=== PATIENT | female | born 1990 | race Caucasian/White ===

== ENCOUNTER 2016-10-10 11:26 | Emergency (ER) | payer OTHER ==
--- NOTE | 2016-10-10 14:00 | ED ORDER SUMMARY ---
..... Patient: SORAYA MIDDLETON OrderSheet [facility] VisitID: [id number] [place] [address] 26y, F Registration Date/Time: 10/10/2016 ORDER SHEET Weight: 141.9 kg (measured) Allergies: No Known Drug Allergy GENERAL ORDERS: CBC w Diff Urgent (12:07 10/10/2016 HBivens A.R.N.P.) (Ack 12:09 TBergley) (12:16 EHassan R.N.) CMP Urgent (12:10/10/2016 HBivens A.R.N.P.) (Ack 12:09 TBergley) (12:16 EHassan R.N.) Serum Qualitative Urgent (12:10/10/2016 HBivens A.R.N.P.) (Ack 12:09 TBergley) (12:16 EHassan R.N.) Pelvic Exam Setup (12:07 10/10/2016 HBivens A.R.N.P.) (Ack 12:09 TBergley) (12:16 EHassan R.N.) US OB 1st Trimester w Transvag (6 wks) Urgent (12:44 10/10/2016 HBivens A.R.N.P.) (Ack 12:45 TBergley) (13:28 EHassan R.N.) Serum Quantitative Urgent (12:44 10/10/2016 HBivens A.R.N.P.) (Ack 12:45 TBergley) (13:28 EHassan R.N.) MEDICATION ORDERS: IV FLUIDS: ORDER SHEET NOTES: [Electronically signed by Clair Johnston R.N. (14:12 10/10/2016)] [Electronically signed by Rachele Mcnamara A.R.N.P. (14:21 10/10/2016)] [Electronically locked/signed by Clair Johnston R.N. (14:12 10/10/2016)]
--- NOTE | 2016-10-10 14:00 | ED NURSING NOTES ---
Clinical Report - Nurses [facility] [address] [place] [address] 10/10/2016 11:28 Patient: SORAYA MIDDLETON TRIAGE Triage time 1138 AM. Acuity: LEVEL 3. Chief Complaint: ABDOMINAL CRAMPS, SPOTTING and VAGINAL BLEEDING. Alert. No acute distress. SEPSIS SCREEN: Sepsis Screen. Negative (no infection suspected/documented). --11:45 Clair Johnston R.N. 11:36 10/10/16. BP: 133/79. HR: 106. RR: 14. O2 saturation: 96%. Temp: 98.5 F. Pain level now: 01/21. --11:45 Clair Johnston R.N. Weight: 141.9 kg measured. Height/Length: 69 inches Per Patient. BMI: 46.2. --11:37 Clair Johnston R.N. Medications Vitamins Oral. --11:44 Clair Johnston R.N. Medication/allergy information source: the patient. --11:45 Clair Johnston R.N. Allergies No Known Drug Allergy. --11:44 Clair Johnston R.N. History Arrived by private vehicle. Historian: patient. Accompanied by family. Primary physician ([facility] clinic). ( Pt states being 6 weeks and as of this morning started heavy bleeding with cramping, now light spotting still cramping. Pt states with her first had the same symptoms happened and needed a RH shot. Here for further evaluation). This started today. This is a new problem. No vomiting, fever or swelling. 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 PAST MEDICAL HX: Immunizations: up-to-date. 2. Para 1. Abortions 0. Sexual history - sexually active. She has had care in a clinic (Has an appoitment on ). SOCIAL HX: Light tobacco smoker (cigarette)- less than 1/2 a pack per day. No alcohol use or drug use. No infectious disease exposure. ABUSE ASSESSMENT: No report of abuse. SELF HARM ASSESSMENT: A self harm assessment was performed. The patient answered "no" to the question "Do you have thoughts of harming or killing yourself?" and "Have you recently had thoughts about harming or killing others?". FALL RISK ASSESSMENT: Fall risk assessment completed. No fall risk identified. NUTRITIONAL RISK ASSESSMENT: The nutritional risk assessment revealed no deficiencies. FUNCTIONAL ASSESSMENT: Functional assessment: no impairments noted. LEARNING NEEDS ASSESSMENT: The learning needs assessment revealed no barriers. SKIN INTEGRITY ASSESSMENT: Skin integrity risk assessment completed. No skin integrity risk identified. --11:45 Clair Johnston R.N. ADDITIONAL SURGERIES: Cholecystectomy. --11:45 Clair Johnston R.N. Interventions ID band on patient. --11:45 Clair Johnston R.N. PHYSICAL ASSESSMENT Ambulatory to room. GENERAL / NEURO / PSYCH: Alert. Oriented X 4. Appears in no acute distress. HEENT: Mucous membranes are pink. RESPIRATORY: Respirations not labored. Breath sounds within normal limits. CVS: Capillary refill less than 2 seconds. GI / : Abdomen soft and nontender. Bowel sounds within normal limits. Scant vaginal bleeding present, consisting of bright red blood .1 pad per hour. No vaginal discharge. EXTREMITIES: No lower extremity edema. SKIN: Skin is warm and dry. --11:46 Clair Johnston R.N. NURSING PROGRESS NOTES The initial plan of care for this patient has been created This plan of care was discussed with the patient. Patient gowned. Warming measures: blanket applied. Reassurance given. Two patient identifiers checked. Call light placed in reach. Side rails up x 1. Bed placed in lowest position. Brakes of bed on. Patient ready for evaluation- ED physician notified. --11:47 Clair Johnston R.N. 11:49 10/10/2016 Site #1 started via IV in the right antecubital space with an 20g angiocath. Blood drawn: rainbow set. Labeled in the presence of the patient and sent to the lab. --11:54 Clair Johnston R.N. Patient ID band checked for patient name, birthdate and medical record number: patient confirmed. Blood samples drawn from the right antecubital space IV site by nurse per protocol ; labeled in presence of the patient and sent to lab: rainbow set. Patient ID band checked for patient name, birthdate and medical record number: patient confirmed. Instructions provided to collect clean catch urine and patient verbalized understanding urine collected with return of yellow-colored clear urine; sample sent to lab for urinalysis. Specimen labeled in the presence of the patient. --11:55 Clair Johnston R.N. 12:13 10/10/16. Flight Test Shop Mechanic provided for the general and pelvic exam by the physician. PELVIC EXAM: Pelvic exam performed by TINNER HELPER. Assisted by a nurse. Procedure: speculum and bimanual exam. Status post-procedure: she was stable and no complications were noted. Total time of assist / procedure: 15 minutes. --12:13 Sue Mcnally R.N. DISPOSITION / DISCHARGE 14:02 10/10/16. BP: 124/62. HR: 93. RR: 15. O2 saturation: 98% on room air. Pain level now: 11/21. --14:02 Clair Johnston R.N. Condition at departure: unchanged and stable. The goals identified in the patient's plan of care were met. No learning barriers present. Discharge instructions provided and reviewed with the patient. FALL RISK ASSESSMENT: Fall risk assessment completed. No fall risk identified. --14:02 Clair Johnston R.N. Departure time: 1407 PM. --14:07 Clair Johnston R.N. The patient was discharged by the nurse practitioner. She was discharged home and accompanied by parent. She left the Emergency Department ambulatory and via private vehicle. Parent driving. --14:07 Clair Johnston R.N. 14:06 10/10/2016 Site #1 removed upon discharge. Catheter intact. Manual pressure, pressure dressing, bandaid and bandage applied. --14:11 lCair Johnston R.N. 14:11 10/10/16. Temp: 98.1 F (oral). --14:12 Clair Johnston R.N. Locked/Released at 10/10/2016 14:12 by Clair Johnston R.N.
--- NOTE | 2016-10-10 14:00 | ED CLINICAL REPORT ---
Clinical Report - Physicians/Mid Levels [facility] [address] [place] [address] 10/10/2016 11:28 Patient: SORAYA MIDDLETON Time Seen: 12:01; initial patient contact, initial documentation, patient care assumed. Arrived- By private vehicle. Historian- patient. HISTORY OF PRESENT ILLNESS Chief Complaint: VAGINAL BLEEDING. This started today and still present but is better now. The symptoms are described as moderate. Modifying factors. Not worsened by anything. Not relieved by anything. The patient has had crampy pelvic pain, described as "pain", with vaginal bleeding. She has had abnormal bleeding described as heavier than normal period and spotting. Sexually active- unprotected sex and heterosexual. No exposure to sexually transmitted disease. Does not use control measures. (started with heavy bleeding and now she is just spotting). Currently : 6 weeks. In 1st trimester. G 2. P 1. Receiving care (1st visit this week). Similar symptoms previously: Once, as bad. ( had vag bleeding with and was given rhogam shot to stop it). Recent medical care: Not recently seen/assessed. REVIEW OF SYSTEMS No nausea, vomiting, diarrhea, fever or difficulty breathing. No chest pain. All systems otherwise negative, except as recorded above. PAST HISTORY See nurses notes. ( ADDITIONAL SURGERIES: Cholecystectomy. --11:45 Clair Johnston, R.N.). SOCIAL HISTORY Light tobacco smoker. No alcohol use or drug use. No recent travel. Is a local resident. FAMILY HISTORY Negative. ADDITIONAL NOTES The nursing notes have been reviewed with agreement regarding the chief complaint, HPI, ROS, PMH and patient medications and allergies. PHYSICAL EXAM Vital Signs: 10/10/2016 11:36 BP: 133/79. HR: 106. RR: 14. O2 saturation: 96%. Temp: 98.5 F. Pain level now: 8/10. Have been reviewed as abnormal and appear to be correct. Blood pressure normal. Tachycardic. Respiratory rate normal. Temperature normal. Oxygen saturation normal. Appearance: Alert. Oriented X3. No acute distress. HEENT: Normal external inspection. ENT: Pharynx normal. Neck: Neck supple. CVS: Heart sounds normal. Respiratory: No respiratory distress. Breath sounds normal. Chest nontender. Abdomen: Soft and nontender. Bowel sounds normal. No organomegaly. No mass. Back: Normal external inspection. : External inspection normal. Speculum exam normal. Bimanual exam abnormal. Mild right adnexal tenderness; uterine tenderness; left adnexal tenderness; cervical motion tenderness. No right adnexal fullness or mass. No left adnexal fullness or mass. No uterine enlargement or mass on bimanual exam. (engineer chief hitesh Rogers). Skin: Skin warm and dry. Normal skin color. No rash. Normal skin turgor. Extremities: Extremities nontender. No lower extremity edema. Neuro: Oriented X 3. Mood/affect normal. No motor deficit. No sensory deficit. LABS, X-RAYS, AND EKG Pelvic Sonogram: . 6w1d iup hr 120's verbal report from [facility]. Laboratory Tests: Serum Qualitative: (ETHEL: 10/10/2016 11:50) ( [facility] 10/10/2016 12:25) Final results Test Result Flag Units (Reference) , SERUM POSITIVE CBC w Diff: (ETHEL: 10/10/2016 11:50) ( [facility] 10/10/2016 12:19) Final results Test Result Flag Units (Reference) WHITE BLOOD COUNT 11.3 K/uL (4.5-11.5) RED BLOOD COUNT 5.30 H M/uL (4.00-5.20) HEMOGLOBIN 13.7 gm/dL (12.0-16.0) HEMATOCRIT 41.6 % (36.0-46.0) MEAN CELL VOLUME 79 L fL (80-100) MEAN CORPUSCULAR HGB 26 pg (26-34) MEAN CORPUSCULAR HGB CONC 33 g/dL (31-37) RED CELL DISTRIBUTION WIDTH 15.0 H % (11.6-14.8) PLATELET COUNT 328 K/uL (150-400) NEUTROPHIL % 73.4 % (50-75) LYMPH % 19.2 L % (25-40) MONO % 5.1 % (3-14) EOSINOPHIL % 2.0 % (0-4) BASOPHIL % 0.3 % (0-2) Serum Quantitative: (ETHEL: 10/10/2016 11:50) ( [facility] 10/10/2016 13:32) Final results Test Result Flag Units (Reference) BETA HCG, QUANTITATIVE 94793 mIU/mL REFERENCE RANGE:Adult Males: <2 mIU/mLNon- Females: <6 mIU/mL Females:Approximate Approximate hCGGestational Age Range (mIU/mL) 0-1 week 0-501-2 weeks 40-3002-3 weeks 100-09446-9 weeks 500-71442-7 months 5,000-200,0002-3 months 10,000-100,0002nd trimester 3,000-50,0003rd trimester 1,000-50,000 CMP: (ETHEL: 10/10/2016 11:50) ( [facility] 10/10/2016 12:37) Final results Test Result Flag Units (Reference) GLUCOSE 113 H mg/dL (70-110) BUN 9 mg/dL (7-18) CREATININE 0.7 mg/dL (0.6-1.3) Estimated GFR >60 mL/min Estimated GFR- >60 mL/min Note: Persistent reduction over 3 months in eGFR<60 mL/min/1.73 m2 defines CKD. Patients with eGFR values>=60 mL/min/1.73 m2 may also have CKD if evidence ofpersistent proteinuria. Additional information may be foundat www.kidney.org. SODIUM 137 mmol/L (136-145) POTASSIUM 3.8 mmol/L (3.5-5.1) CHLORIDE 103 mmol/L (98-107) CARBON DIOXIDE 23 mmol/L (21-32) CALCIUM 8.2 L mg/dL (8.5-10.1) TOTAL PROTEIN 7.4 g/dL (6.4-8.2) ALBUMIN 3.3 g/dL (3.3-5.0) BILIRUBIN, TOTAL 0.3 mg/dL (0.0-1.0) ALKALINE PHOSPHATASE 96 U/L (46-116) AST (SGOT) 21 U/L (15-37) ALT (SGPT) 29 U/L (12-78) . PROGRESS AND PROCEDURES Patient counseled in person regarding the patient's stable condition, test results and diagnosis. 13:58. Differential Diagnosis: I considered urinary tract infection, cystitis, ureterolithiasis, ovarian cyst, ovarian torsion, , ectopic , pelvic inflammatory disease, pelvic abscess and endometriosis as a possible cause of pelvic pain in this patient. This is a partial list of diagnoses considered. (miscarriage). Above considerations are based on history, physical exam, reassessment, laboratory data and other information. Differential diagnosis was discussed with patient. Disposition: Discharged home in good and improved condition (14:00). Condition: good and stable. CLINICAL IMPRESSION Mild vaginal bleeding. INSTRUCTIONS Warnings: GENERAL WARNINGS: Return or contact your physician immediately if your condition worsens or changes unexpectedly, if not improving as expected, or if other problems arise. Specifically return if bleeding returns or worsens. Follow-up: Follow up with your doctor Wednesday as scheduled even if well. Summary of care provided to patient. Understanding of the discharge instructions verbalized by patient. (Electronically signed by Rachele Mcnamara A.R.N.P. 10/10/2016 14:21)
--- NOTE | 2016-10-10 14:00 | ED ORDER SUMMARY ---
..... Patient: SORAYA MIDDLETON OrderSheet [facility] VisitID: [id number] [place] [address] 26y, F Registration Date/Time: 10/10/2016 ORDER SHEET Weight: 141.9 kg (measured) Allergies: No Known Drug Allergy GENERAL ORDERS: CBC w Diff Urgent (12:07 10/10/2016 HBivens A.R.N.P.) (Ack 12:09 TBergley) (12:16 EHassan R.N.) CMP Urgent (12:10/10/2016 HBivens A.R.N.P.) (Ack 12:09 TBergley) (12:16 EHassan R.N.) Serum Qualitative Urgent (12:10/10/2016 HBivens A.R.N.P.) (Ack 12:09 TBergley) (12:16 EHassan R.N.) Pelvic Exam Setup (12:07 10/10/2016 HBivens A.R.N.P.) (Ack 12:09 TBergley) (12:16 EHassan R.N.) US OB 1st Trimester w Transvag (6 wks) Urgent (12:44 10/10/2016 HBivens A.R.N.P.) (Ack 12:45 TBergley) (13:28 EHassan R.N.) Serum Quantitative Urgent (12:44 10/10/2016 HBivens A.R.N.P.) (Ack 12:45 TBergley) (13:28 EHassan R.N.) MEDICATION ORDERS: IV FLUIDS: ORDER SHEET NOTES: [Electronically signed by Clair Johnston R.N. (14:12 10/10/2016)] [Electronically signed by Rachele Mcnamara A.R.N.P. (14:21 10/10/2016)] [Electronically locked/signed by Clair Johnston R.N. (14:12 10/10/2016)]
--- NOTE | 2016-10-10 14:00 | ED NURSING NOTES ---
Clinical Report - Nurses [facility] [address] [place] [address] 10/10/2016 11:28 Patient: SORAYA MIDDLETON TRIAGE Triage time 1138 AM. Acuity: LEVEL 3. Chief Complaint: ABDOMINAL CRAMPS, SPOTTING and VAGINAL BLEEDING. Alert. No acute distress. SEPSIS SCREEN: Sepsis Screen. Negative (no infection suspected/documented). --11:45 Clair Johnston R.N. 11:36 10/10/16. BP: 133/79. HR: 106. RR: 14. O2 saturation: 96%. Temp: 98.5 F. Pain level now: 01/21. --11:45 Clair Johnston R.N. Weight: 141.9 kg measured. Height/Length: 69 inches Per Patient. BMI: 46.2. --11:37 Clair Johnston R.N. Medications Vitamins Oral. --11:44 Clair Johnston R.N. Medication/allergy information source: the patient. --11:45 Clair Johnston R.N. Allergies No Known Drug Allergy. --11:44 Clair Johnston R.N. History Arrived by private vehicle. Historian: patient. Accompanied by family. Primary physician ([facility] clinic). ( Pt states being 6 weeks and as of this morning started heavy bleeding with cramping, now light spotting still cramping. Pt states with her first had the same symptoms happened and needed a RH shot. Here for further evaluation). This started today. This is a new problem. No vomiting, fever or swelling. 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 PAST MEDICAL HX: Immunizations: up-to-date. 2. Para 1. Abortions 0. Sexual history - sexually active. She has had care in a clinic (Has an appoitment on ). SOCIAL HX: Light tobacco smoker (cigarette)- less than 1/2 a pack per day. No alcohol use or drug use. No infectious disease exposure. ABUSE ASSESSMENT: No report of abuse. SELF HARM ASSESSMENT: A self harm assessment was performed. The patient answered "no" to the question "Do you have thoughts of harming or killing yourself?" and "Have you recently had thoughts about harming or killing others?". FALL RISK ASSESSMENT: Fall risk assessment completed. No fall risk identified. NUTRITIONAL RISK ASSESSMENT: The nutritional risk assessment revealed no deficiencies. FUNCTIONAL ASSESSMENT: Functional assessment: no impairments noted. LEARNING NEEDS ASSESSMENT: The learning needs assessment revealed no barriers. SKIN INTEGRITY ASSESSMENT: Skin integrity risk assessment completed. No skin integrity risk identified. --11:45 Clair Johnston R.N. ADDITIONAL SURGERIES: Cholecystectomy. --11:45 Clair Johnston R.N. Interventions ID band on patient. --11:45 Clair Johnston R.N. PHYSICAL ASSESSMENT Ambulatory to room. GENERAL / NEURO / PSYCH: Alert. Oriented X 4. Appears in no acute distress. HEENT: Mucous membranes are pink. RESPIRATORY: Respirations not labored. Breath sounds within normal limits. CVS: Capillary refill less than 2 seconds. GI / : Abdomen soft and nontender. Bowel sounds within normal limits. Scant vaginal bleeding present, consisting of bright red blood .1 pad per hour. No vaginal discharge. EXTREMITIES: No lower extremity edema. SKIN: Skin is warm and dry. --11:46 Clair Johnston R.N. NURSING PROGRESS NOTES The initial plan of care for this patient has been created This plan of care was discussed with the patient. Patient gowned. Warming measures: blanket applied. Reassurance given. Two patient identifiers checked. Call light placed in reach. Side rails up x 1. Bed placed in lowest position. Brakes of bed on. Patient ready for evaluation- ED physician notified. --11:47 Clair Johnston R.N. 11:49 10/10/2016 Site #1 started via IV in the right antecubital space with an 20g angiocath. Blood drawn: rainbow set. Labeled in the presence of the patient and sent to the lab. --11:54 Clair Johnston R.N. Patient ID band checked for patient name, birthdate and medical record number: patient confirmed. Blood samples drawn from the right antecubital space IV site by nurse per protocol ; labeled in presence of the patient and sent to lab: rainbow set. Patient ID band checked for patient name, birthdate and medical record number: patient confirmed. Instructions provided to collect clean catch urine and patient verbalized understanding urine collected with return of yellow-colored clear urine; sample sent to lab for urinalysis. Specimen labeled in the presence of the patient. --11:55 Clair Johnston R.N. 12:13 10/10/16. Hanger Off provided for the general and pelvic exam by the physician. PELVIC EXAM: Pelvic exam performed by HEADING PINNER. Assisted by a nurse. Procedure: speculum and bimanual exam. Status post-procedure: she was stable and no complications were noted. Total time of assist / procedure: 15 minutes. --12:13 Sue Mcnally R.N. DISPOSITION / DISCHARGE 14:02 10/10/16. BP: 124/62. HR: 93. RR: 15. O2 saturation: 98% on room air. Pain level now: 11/21. --14:02 Clair Johnston R.N. Condition at departure: unchanged and stable. The goals identified in the patient's plan of care were met. No learning barriers present. Discharge instructions provided and reviewed with the patient. FALL RISK ASSESSMENT: Fall risk assessment completed. No fall risk identified. --14:02 Clair Johnston R.N. Departure time: 1407 PM. --14:07 Clair Johnston R.N. The patient was discharged by the nurse practitioner. She was discharged home and accompanied by parent. She left the Emergency Department ambulatory and via private vehicle. Parent driving. --14:07 Clair Johnston R.N. 14:06 10/10/2016 Site #1 removed upon discharge. Catheter intact. Manual pressure, pressure dressing, bandaid and bandage applied. --14:11 Clair Johnston R.N. 14:11 10/10/16. Temp: 98.1 F (oral). --14:12 Clair Johnston R.N. Locked/Released at 10/10/2016 14:12 by Clair Johnston R.N.
--- NOTE | 2016-10-10 14:00 | ED CLINICAL REPORT ---
Clinical Report - Physicians/Mid Levels [facility] [address] [place] [address] 10/10/2016 11:28 Patient: SORAYA MIDDLETON Time Seen: 12:01; initial patient contact, initial documentation, patient care assumed. Arrived- By private vehicle. Historian- patient. HISTORY OF PRESENT ILLNESS Chief Complaint: VAGINAL BLEEDING. This started today and still present but is better now. The symptoms are described as moderate. Modifying factors. Not worsened by anything. Not relieved by anything. The patient has had crampy pelvic pain, described as "pain", with vaginal bleeding. She has had abnormal bleeding described as heavier than normal period and spotting. Sexually active- unprotected sex and heterosexual. No exposure to sexually transmitted disease. Does not use control measures. (started with heavy bleeding and now she is just spotting). Currently : 6 weeks. In 1st trimester. G 2. P 1. Receiving care (1st visit this week). Similar symptoms previously: Once, as bad. ( had vag bleeding with and was given rhogam shot to stop it). Recent medical care: Not recently seen/assessed. REVIEW OF SYSTEMS No nausea, vomiting, diarrhea, fever or difficulty breathing. No chest pain. All systems otherwise negative, except as recorded above. PAST HISTORY See nurses notes. ( ADDITIONAL SURGERIES: Cholecystectomy. --11:45 Clair Johnston, R.N.). SOCIAL HISTORY Light tobacco smoker. No alcohol use or drug use. No recent travel. Is a local resident. FAMILY HISTORY Negative. ADDITIONAL NOTES The nursing notes have been reviewed with agreement regarding the chief complaint, HPI, ROS, PMH and patient medications and allergies. PHYSICAL EXAM Vital Signs: 10/10/2016 11:36 BP: 133/79. HR: 106. RR: 14. O2 saturation: 96%. Temp: 98.5 F. Pain level now: 8/10. Have been reviewed as abnormal and appear to be correct. Blood pressure normal. Tachycardic. Respiratory rate normal. Temperature normal. Oxygen saturation normal. Appearance: Alert. Oriented X3. No acute distress. HEENT: Normal external inspection. ENT: Pharynx normal. Neck: Neck supple. CVS: Heart sounds normal. Respiratory: No respiratory distress. Breath sounds normal. Chest nontender. Abdomen: Soft and nontender. Bowel sounds normal. No organomegaly. No mass. Back: Normal external inspection. : External inspection normal. Speculum exam normal. Bimanual exam abnormal. Mild right adnexal tenderness; uterine tenderness; left adnexal tenderness; cervical motion tenderness. No right adnexal fullness or mass. No left adnexal fullness or mass. No uterine enlargement or mass on bimanual exam. (online health and fitness coach hitesh Rogers). Skin: Skin warm and dry. Normal skin color. No rash. Normal skin turgor. Extremities: Extremities nontender. No lower extremity edema. Neuro: Oriented X 3. Mood/affect normal. No motor deficit. No sensory deficit. LABS, X-RAYS, AND EKG Pelvic Sonogram: . 6w1d iup hr 120's verbal report from [facility]. Laboratory Tests: Serum Qualitative: (ETHEL: 10/10/2016 11:50) ( [facility] [place] 10/10/[place] 12:25) Final results Test Result Flag Units (Reference) , SERUM POSITIVE CBC w Diff: (ETHEL: 10/10/2016 11:50) ( [facility] [place] 10/10/2016 12:19) Final results Test Result Flag Units (Reference) WHITE BLOOD COUNT 11.3 K/uL (4.5-11.5) RED BLOOD COUNT 5.30 H M/uL (4.00-5.20) HEMOGLOBIN 13.7 gm/dL (12.0-16.0) HEMATOCRIT 41.6 % (36.0-46.0) MEAN CELL VOLUME 79 L fL (80-100) MEAN CORPUSCULAR HGB 26 pg (26-34) MEAN CORPUSCULAR HGB CONC 33 g/dL (31-37) RED CELL DISTRIBUTION WIDTH 15.0 H % (11.6-14.8) PLATELET COUNT 328 K/uL (150-400) NEUTROPHIL % 73.4 % (50-75) LYMPH % 19.2 L % (25-40) MONO % 5.1 % (3-14) EOSINOPHIL % 2.0 % (0-4) BASOPHIL % 0.3 % (0-2) Serum Quantitative: (ETHEL: 10/10/2016 11:50) ( [facility]kg[facility]cvd 10/10/2016 13:32) Final results Test Result Flag Units (Reference) BETA HCG, QUANTITATIVE 61941 mIU/mL REFERENCE RANGE:Adult Males: <2 mIU/mLNon- Females: <6 mIU/mL Females:Approximate Approximate hCGGestational Age Range (mIU/mL) 0-1 week 0-501-2 weeks 40-3002-3 weeks 100-36778-2 weeks 500-75461-0 months 5,000-200,0002-3 months 10,000-100,0002nd trimester 3,000-50,0003rd trimester 1,000-50,000 CMP: (ETHEL: 10/10/2016 11:50) ( OkgRcvd 10/10/2016 12:37) Final results Test Result Flag Units (Reference) GLUCOSE 113 H mg/dL (70-110) BUN 9 mg/dL (7-18) CREATININE 0.7 mg/dL (0.6-1.3) Estimated GFR >60 mL/min Estimated GFR- >60 mL/min Note: Persistent reduction over 3 months in eGFR<60 mL/min/1.73 m2 defines CKD. Patients with eGFR values>=60 mL/min/1.73 m2 may also have CKD if evidence ofpersistent proteinuria. Additional information may be foundat www.kidney.org. SODIUM 137 mmol/L (136-145) POTASSIUM 3.8 mmol/L (3.5-5.1) CHLORIDE 103 mmol/L (98-107) CARBON DIOXIDE 23 mmol/L (21-32) CALCIUM 8.2 L mg/dL (8.5-10.1) TOTAL PROTEIN 7.4 g/dL (6.4-8.2) ALBUMIN 3.3 g/dL (3.3-5.0) BILIRUBIN, TOTAL 0.3 mg/dL (0.0-1.0) ALKALINE PHOSPHATASE 96 U/L (46-116) AST (SGOT) 21 U/L (15-37) ALT (SGPT) 29 U/L (12-78) . PROGRESS AND PROCEDURES Patient counseled in person regarding the patient's stable condition, test results and diagnosis. 13:58. Differential Diagnosis: I considered urinary tract infection, cystitis, ureterolithiasis, ovarian cyst, ovarian torsion, , ectopic , pelvic inflammatory disease, pelvic abscess and endometriosis as a possible cause of pelvic pain in this patient. This is a partial list of diagnoses considered. (miscarriage). Above considerations are based on history, physical exam, reassessment, laboratory data and other information. Differential diagnosis was discussed with patient. Disposition: Discharged home in good and improved condition (14:00). Condition: good and stable. CLINICAL IMPRESSION Mild vaginal bleeding. INSTRUCTIONS Warnings: GENERAL WARNINGS: Return or contact your physician immediately if your condition worsens or changes unexpectedly, if not improving as expected, or if other problems arise. Specifically return if bleeding returns or worsens. Follow-up: Follow up with your doctor Wednesday as scheduled even if well. Summary of care provided to patient. Understanding of the discharge instructions verbalized by patient. (Electronically signed by Rachele Mcnamara A.R.N.P. 10/10/2016 14:21)
--- NOTE | 2016-10-10 14:21 | ED DISCHARGE INSTRUCTIONS ---
Patient: SORAYA MIDDLETON General Instructions [facility] VisitID: [id number] [place] [address] 26y, F Registration Date/Time: 10/10/2016 Mild vaginal bleeding. INSTRUCTIONS Warnings: GENERAL WARNINGS: Return or contact your physician immediately if your condition worsens or changes unexpectedly, if not improving as expected, or if other problems arise. Specifically return if bleeding returns or worsens. Follow-up: Follow up with your doctor Wednesday as scheduled even if well. Summary of care provided to patient. Understanding of the discharge instructions verbalized by patient. ADDITIONAL INFORMATION Irregular Vaginal Bleeding This is a condition in which bleeding occurs at unexpected times of the month. The bleeding may be heavier or radiology tech than usual. Heavy bleeding may lead to anemia. If severe enough, anemia may cause you to look pale and feel weak or fatigued. You might have shortness of breath even with little exertion. The female hormones produced in your body every month may be out of balance. This imbalance leads to bleeding. Causes could include an ovarian cyst, emotional stress, pelvic infection. Failure to ovulate during your last cycle may also cause this problem. Home Care: If bleeding is heavy, rest and avoid heavy exertion. You may use acetaminophen (Tylenol) or ibuprofen (Motrin, Advil) to control pain, unless another pain medicine was prescribed. [NOTE: If you have chronic liver or kidney disease or ever had a stomach ulcer or GI bleeding, talk with your doctor before using these medicines.] Iron supplements may be prescribed for anemia. It takes about 4-6 weeks for the iron to correct the anemia. Take the medicine as directed. See your doctor for a repeat blood test after you finish the iron treatment. If hormones were prescribed to control your bleeding, take them exactly as directed. If you were prescribed a medicine called Provera (medroxyprogesterone), the bleeding should stop while you are taking it. Another period will start a few days after you finish the medicine. Follow Up with your doctor, or as advised, within the next 1-2 days if heavy bleeding continues. Otherwise, follow up within the next 1-2 weeks. Get Prompt Medical Attention if any of the following occur: Bleeding becomes heavy (soaking one pad an hour for three hours) Fever of 100.4F (38C) or higher, or as directed by your healthcare provider Increase in abdominal pain Weakness, dizziness or fainting You have been given the following additional information: Dysfunctional Uterine Bleeding (Electronically signed by Rachele Mcnamara A.R.N.P. 10/10/2016 14:21)
--- NOTE | 2016-10-10 14:21 | ED MAR SUMMARY ---
..... Medication Administration Record [facility] [address] [place], [place] [id number] Patient: SORAYA MIDDLETON Visit ID: [id number] 26y, F Weight: 141.9 kg Height/Length: 69 in BMI: 46.2 ALLERGIES: No Known Drug Allergy
--- NOTE | 2016-10-10 14:21 | ED MED RECONCILIATION SUMMARY ---
Patient: SORAYA MIDDLETON Medication Reconciliation Report [facility] VisitID: [id number] [address] [place] [address] 26y, F Registration Date/Time: 10/10/2016 Weight: 141.9 kg Height/Length: 69 in. BMI: 46.2 ALLERGIES: No Known Drug Allergy The patient's Home Medications are listed below: THE FOLLOWING MEDICATIONS NEED TO BE RECONCILED: Vitamins Oral The source(s) of the original Home Medication information: patient The following Medications were given to the patient in the Emergency Department: None. The following Medications were prescribed to the patient: None.
--- NOTE | 2016-10-10 14:21 | ED MED RECONCILIATION SUMMARY ---
Patient: SORAYA MIDDLETON Medication Reconciliation Report [facility] VisitID: [id number] [address] [place] [address] 26y, F Registration Date/Time: 10/10/2016 Weight: 141.9 kg Height/Length: 69 in. BMI: 46.2 ALLERGIES: No Known Drug Allergy The patient's Home Medications are listed below: THE FOLLOWING MEDICATIONS NEED TO BE RECONCILED: Vitamins Oral The source(s) of the original Home Medication information: patient The following Medications were given to the patient in the Emergency Department: None. The following Medications were prescribed to the patient: None.
--- NOTE | 2016-10-10 14:21 | ED DISCHARGE INSTRUCTIONS ---
Patient: SORAYA MIDDLETON General Instructions [facility] VisitID: [id number] [place] [address] 26y, F Registration Date/Time: 10/10/2016 Mild vaginal bleeding. INSTRUCTIONS Warnings: GENERAL WARNINGS: Return or contact your physician immediately if your condition worsens or changes unexpectedly, if not improving as expected, or if other problems arise. Specifically return if bleeding returns or worsens. Follow-up: Follow up with your doctor Wednesday as scheduled even if well. Summary of care provided to patient. Understanding of the discharge instructions verbalized by patient. ADDITIONAL INFORMATION Irregular Vaginal Bleeding This is a condition in which bleeding occurs at unexpected times of the month. The bleeding may be heavier or glass mould cleaner than usual. Heavy bleeding may lead to anemia. If severe enough, anemia may cause you to look pale and feel weak or fatigued. You might have shortness of breath even with little exertion. The female hormones produced in your body every month may be out of balance. This imbalance leads to bleeding. Causes could include an ovarian cyst, emotional stress, pelvic infection. Failure to ovulate during your last cycle may also cause this problem. Home Care: If bleeding is heavy, rest and avoid heavy exertion. You may use acetaminophen (Tylenol) or ibuprofen (Motrin, Advil) to control pain, unless another pain medicine was prescribed. [NOTE: If you have chronic liver or kidney disease or ever had a stomach ulcer or GI bleeding, talk with your doctor before using these medicines.] Iron supplements may be prescribed for anemia. It takes about 4-6 weeks for the iron to correct the anemia. Take the medicine as directed. See your doctor for a repeat blood test after you finish the iron treatment. If hormones were prescribed to control your bleeding, take them exactly as directed. If you were prescribed a medicine called Provera (medroxyprogesterone), the bleeding should stop while you are taking it. Another period will start a few days after you finish the medicine. Follow Up with your doctor, or as advised, within the next 1-2 days if heavy bleeding continues. Otherwise, follow up within the next 1-2 weeks. Get Prompt Medical Attention if any of the following occur: Bleeding becomes heavy (soaking one pad an hour for three hours) Fever of 100.4F (38C) or higher, or as directed by your healthcare provider Increase in abdominal pain Weakness, dizziness or fainting You have been given the following additional information: Dysfunctional Uterine Bleeding (Electronically signed by Rachele Mcnamara A.R.N.P. 10/10/2016 14:21)
--- NOTE | 2016-10-10 14:21 | ED MAR SUMMARY ---
..... Medication Administration Record [facility] [address], [place] [id number] Patient: SORAYA MIDDLETON Visit ID: [id number] 26y, F Weight: 141.9 kg Height/Length: 69 in BMI: 46.2 ALLERGIES: No Known Drug Allergy
--- NOTE | 2016-10-10 20:17 | DIAGNOSTIC IMAGING REPORT ---
PROCEDURE: US OB 1ST TRIMESTER W/TRANSVAG INDICATION: Bleeding. HCG 22,653. TECHNIQUE: Hidalgo scale, color, and spectral Doppler transabdominal and endovaginal sonographic images of the first trimester gravid uterus were obtained. COMPARISON: None. FINDINGS: TRANSABDOMINAL SCANS: Early intrauterine gestational sac. TRANSVAGINAL SCANS: Early viable intrauterine with cardiac activity (120). [place]-rump length 4.9 cm 96 0.3 weeks). Placenta is circumferential. Normal fluid. Ovaries are normal. IMPRESSION: 1. Early viable intrauterine at 6.3 weeks menstrual age (plus or minus 0.7 weeks). HERMES is 06/03/2017.
--- NOTE | 2016-10-10 20:17 | DIAGNOSTIC IMAGING REPORT ---
PROCEDURE: US OB 1ST TRIMESTER W/TRANSVAG INDICATION: Bleeding. HCG 22,653. TECHNIQUE: Hidalgo scale, color, and spectral Doppler transabdominal and endovaginal sonographic images of the first trimester gravid uterus were obtained. COMPARISON: None. FINDINGS: TRANSABDOMINAL SCANS: Early intrauterine gestational sac. TRANSVAGINAL SCANS: Early viable intrauterine with cardiac activity (120). [place]-rump length 4.9 cm 96 0.3 weeks). Placenta is circumferential. Normal fluid. Ovaries are normal. IMPRESSION: 1. Early viable intrauterine at 6.3 weeks menstrual age (plus or minus 0.7 weeks). HERMES is 06/03/2017.
== END 2016-10-10 14:08 | disposition home or self-care (01) ==
LOC: ED SRH 11:26
DX: O20.9 Hemorrhage in early pregnancy, unspecified (principal); Z3A.01 Less than 8 weeks gestation of pregnancy; F17.200 Nicotine dependence, unspecified, uncomplicated
CPT/HCPCS: 90100; 90197; 95059; 98428

== ENCOUNTER 2016-10-15 10:23 | Outpatient (CLI) | payer OTHER | END 2016-10-15 23:00 | LOC: LAB SRH 10:23 | DX: N91.2 Amenorrhea, unspecified (principal) | CPT/HCPCS: 90004; 90074; 90078; 90261; 90364; 90599; 90600; 90605; 90606; 90710; 90851; 92863; 93140; 98480; 99777 ==

== ENCOUNTER 2016-11-23 06:02 | Outpatient (CLI) | payer OTHER | END 2016-11-23 23:00 | disposition home or self-care (01) | LOC: LAB SRH 06:02 | DX: Z34.91 Encounter for supervision of normal pregnancy, unspecified, first trimester (principal) | CPT/HCPCS: 90039; 90074; 91162; 91163; 91227; 91228 ==

== ENCOUNTER 2016-11-26 07:38 | Outpatient (CLI) | payer OTHER | END 2016-11-26 23:00 | LOC: LAB SRH 07:38 | DX: R73.02 Impaired glucose tolerance (oral) (principal) | CPT/HCPCS: 92652 ==

== ENCOUNTER 2016-12-29 17:06 | Emergency (ER) | payer OTHER ==
--- NOTE | 2016-12-29 19:12 | ED NURSING NOTES ---
Clinical Report - Nurses [facility] [address] [place] [address] 12/29/2016 17:06 Patient: SORAYA MIDDLETON TRIAGE Triage time 17:Dec 29 2016. Chief Complaint: HEADACHE and MIGRAINE HEADACHE and (pt with hx of migraines, EDC 05/29/2017, c/o headache x 3 days). Alert. No acute distress. SEPSIS SCREEN: Sepsis Screen. Negative (no infection suspected/documented). DUSTIN COMA SCORE: [place] Coma Scale: 15- eyes open spontaneously (4); best verbal response- oriented x 4 (5); best motor response- obeys commands (6). --17:16 Walt Pillai R.N. 17:11 12/29/16. BP: 147/74. HR: 110. RR: 15. O2 saturation: 97%. Temp: 97.8 F. Pain level now: 03/23. --17:16 Walt Pillai R.N. Weight: 142.8 kg stated. Height/Length: 69 inches Per Patient. BMI: 46.5. --17:14 Walt Pillai R.N. Medications Vitamins Oral. --17:13 Walt Pillai R.N. Medication/allergy information source: the patient. --17:16 Walt Pillai R.N. Allergies No Known Drug Allergy. --17:13 Walt Pillai R.N. History Arrived by private vehicle. Historian: patient. The patient has had nausea. ( pt reports "worse pain she's ever had" rates a 03/23). No vomiting, numbness or fever. 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 PAST MEDICAL HX: Immunizations: up-to-date. Last normal menstrual period- pt does not remember , confirms with EDC of 05/29/2017. SOCIAL HX: Never smoker. No alcohol use or drug use. No recent travel. No infectious disease exposure. No known contact with a sick individual. ABUSE ASSESSMENT: No report of abuse. SELF HARM ASSESSMENT: A self harm assessment was performed. The patient answered "no" to the question "Do you have thoughts of harming or killing yourself?". FALL RISK ASSESSMENT: Fall risk assessment completed. No fall risk identified. NUTRITIONAL RISK ASSESSMENT: The nutritional risk assessment revealed no deficiencies. FUNCTIONAL ASSESSMENT: Functional assessment: no impairments noted. LEARNING NEEDS ASSESSMENT: The learning needs assessment revealed no barriers. SKIN INTEGRITY ASSESSMENT: Skin integrity risk assessment completed. No skin integrity risk identified. --17:16 Walt Pillai R.N. PROBLEMS: Vaginal Bleeding. Care. --17:13 Walt Pillai R.N. ADDITIONAL SURGERIES: Cholecystectomy. --17:13 Walt Pillai R.N. Interventions ID band on patient. To treatment room. --17:16 Walt Pillai R.N. PHYSICAL ASSESSMENT Ambulatory to room. Patient gowned. GENERAL / NEURO / PSYCH: Alert. Oriented X 4. Appears in pain. Speech within normal limits. HEENT: No facial asymmetry noted. Pupils equal, round and reactive to light. RESPIRATORY: Respirations not labored. CVS: Capillary refill less than 2 seconds. SKIN: Skin is warm and dry. --17:16 Walt Pillai R.N. NURSING PROGRESS NOTES Patient identifiers checked. Call light placed in reach. Side rails up x 1. Bed placed in lowest position. Brakes of bed on. Patient ready for evaluation- chart flagged. Patient waiting for evaluation. --17:16 Walt Pillai R.N. 17:34 12/29/16. ( doppler heart tones 155bpm, regular.). --17:34 [facility] 18:03 12/29/2016 Site #1 started via IV in the right hand with an 20g angiocath, with aseptic technique and good blood return; one attempt. Blood drawn: rainbow set. Labeled in the presence of the patient and sent to the lab. Saline lock flushed with 10 mL saline. --18:08 AliM 18:08 12/29/2016 Started bag #1 1000 mL IV Fluids IV NS (Saline); at 999 mL/hr over 1 hour(s) via site #1 via IV pump. Allergies verified and confirmed 5 rights. IV patency established. IV site checked: no pain, redness, or swelling. IV flushed thoroughly pre- and post-medication administration. --18: [facility] 18:12/29/2016 Reglan (Metoclopramide HCl) IVP 10 mg given over 2 minute(s) via site #1. Allergies verified and confirmed 5 rights. IV patency established. IV site checked: no pain, redness, or swelling. IV flushed thoroughly pre- and post-medication administration. IVP given by RN. --18: [facility] 18:12/29/2016 Benadryl (DiphenhydrAMINE HCl) IVP 25 mg given over 2 minute(s) via site #1. Allergies verified, confirmed 5 rights and sedative warning given to the patient. IV patency established. IV site checked: no pain, redness, or swelling. IV flushed thoroughly pre- and post-medication administration. IVP given by RN. --18: [facility] 18:12/29/2016 Zofran (Ondansetron HCl) IVP 4 mg given over 2 minute(s) via site #1. Allergies verified and confirmed 5 rights. IV patency established. IV site checked: no pain, redness, or swelling. IV flushed thoroughly pre- and post-medication administration. IVP given by RN. --18: [facility] 18:12/29/2016 Tylenol (Acetaminophen) PO 650 mg given. Allergies verified and confirmed 5 rights. --18: [facility] 18:24. Checked patient name and birthdate urine collected; sample sent to lab. Specimen labeled in the presence of the patient. --18:31 McQuoid, Kailyn, ER Tech1 18:44 12/29/16. BP: 128/58 taken on the left arm, while lying. HR: 82. RR: 16 (regular and unlabored). O2 saturation: 98% on room air. Temp: 97.7 F (oral). Pain level now: 11/21. --18:45 [facility] 18:35 12/29/2016 Reglan IVP Response: no adverse reaction pain is improving. Symptoms have improved the patient feels better. --18:45 [facility] 18:35 12/29/2016 Benadryl IVP Response: no adverse reaction pain is improving. Symptoms have improved the patient feels better. --18:45 AliM 18:36 12/29/2016 Zofran IVP Response: no adverse reaction pain is improving. Symptoms have improved the patient feels better. --18:46 AliM 18:36 12/29/2016 Tylenol PO Response: no adverse reaction pain is improving. Symptoms have improved the patient feels better. --18:46 AliM 18:45 12/29/16. Pulse oximeter placed on patient. Head of bed elevated 15 degrees. Warming measures: blanket applied. Call light placed in reach. Side rails up x 1. Bed placed in lowest position. Brakes of bed on. --18:45 AliM. DISPOSITION / DISCHARGE 19:29 12/29/16. BP: 135/73 taken on the left arm, while sitting. HR: 95. RR: 14 (regular and unlabored). O2 saturation: 100% on room air. Temp: 98.7 F (oral). Pain level now: 11/21. --19:32 Ali 19:23 12/29/2016 Site #1 removed upon discharge. Manual pressure and bandage applied. --19:33 Ali 19:23 12/29/2016 IV Fluids IV NS Discontinued: bag #1 completed upon discharge. Total amount infused: 1000 mL. IV patency established. IV site checked: no pain, redness, or swelling. IV flushed thoroughly. --19:33 AliM 19:32 12/29/16. Departure time: 19:Dec 29 2016. Condition at departure: improved and stable. The goals identified in the patient's plan of care were met. No learning barriers present. Discharge instructions provided and reviewed with the patient. Reviewed medication(s) side effects, precautions, dosing and course information. Prescription(s) given to the patient. Patient verbalized understanding. Written instructions provided in [place]. ( Taught pt to rest and stay well hydrated.). The patient was discharged home and accompanied by quality assurance lead. She left the Emergency Department ambulatory and via private vehicle. Operations Architect driving. FALL RISK ASSESSMENT: Fall risk assessment completed. No fall risk identified. DUSTIN COMA SCORE: [place] Coma Scale: 15- eyes open spontaneously (4); best verbal response- oriented x 4 (5); best motor response- obeys commands (6). --19:32 Hu. Locked/Released at 12/29/2016 19:33 by Hu,
--- NOTE | 2016-12-29 19:12 | ED CLINICAL REPORT ---
Clinical Report - Physicians/Mid Levels [facility] [address] [place] [address] 12/29/2016 17:06 Patient: SORAYA MIDDLETON Time Seen: 17:14 Dec 29 2016. Arrived- By private vehicle. Historian- patient. HISTORY OF PRESENT ILLNESS Chief Complaint: HEADACHE. 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 headache is throbbing in nature. Patient reports similar headaches with her first . Reports taking Tylenol prior to arrival, low dose with minimal effect. Denies any neck pain, fevers denies any nausea or vomiting. Denies any rhinorrhea congestion. Denies any vaginalbleeding. Denies any loss of fluid.). REVIEW OF SYSTEMS No fever, abdominal pain or skin rash. All systems otherwise negative, except as recorded above. SOCIAL HISTORY Never smoker. No alcohol use or drug use. ADDITIONAL NOTES The nursing notes have been reviewed. PHYSICAL EXAM Vital Signs: 12/29/2016 17:11 BP: 147/74. HR: 110. RR: 15. O2 saturation: 97%. Temp: 97.8 F. Pain level now: 10/10. Appearance: Alert. No apparent distress. Does not appear to be anxious. Eyes: Pupils equal, round and reactive to light. Neck: Normal inspection. Neck supple. CVS: Normal heart rate and rhythm. Heart sounds normal. Respiratory: No respiratory distress. Breath sounds normal. Abdomen: ( uterus, non tender abd). Back: Normal inspection. Skin: Skin warm. Normal skin color. Neuro: Oriented X 3. Alert. Mood/affect normal. Cranial nerves normal (as tested). No cerebellar findings. No motor deficit. LABS, X-RAYS, AND EKG Laboratory Tests: UA-Culture if indicated: (ETHEL: 12/29/2016 18:20) ( MsgRcvd 12/29/2016 18:50) Final results Test Result Flag Units (Reference) URINE COLOR YELLOW URINE APPEARANCE CLEAR URINE GLUCOSE NEGATIVE (NEGATIVE) URINE BILIRUBIN NEGATIVE (NEGATIVE) URINE KETONE NEGATIVE (NEGATIVE) URINE SPECIFIC GRAVITY 1.015 (1.010-1.030) URINE PH 6.0 (5.0-8.0) URINE PROTEIN NEGATIVE (NEGATIVE) URINE UROBILINOGEN 0.2 EU/dL (0.2-1.0) URINE NITRITE NEGATIVE (NEGATIVE) URINE BLOOD NEGATIVE (NEGATIVE) URINE LEUK ESTERASE NEGATIVE (NEGATIVE) URINE RBC 0-1 rbc/hpf (0-1) URINE WBC 1-3 wbc/hpf (0-1) URINE EPITHELIAL CELLS 1-3 EPI/hpf (0-5) URINE BACTERIA NONE SEEN (NONE SEEN) URINE COMMENT CULT NOT INDICATED URINE CULTURES ARE SET-UP BASED ON THE FOLLOWING CRITERIA:POSITIVE NITRITEPOSITIVE LEUKOCYTE ESTERASEGREATER THAN 10 WHITE BLOOD CELLSMODERATE (2+) OR GREATER BACTERIA CBC w Diff: (ETHEL: 12/29/2016 18:09) ( [facility]37) Final results Test Result Flag Units (Reference) WHITE BLOOD COUNT 9.7 K/uL (4.5-11.5) RED BLOOD COUNT 4.18 M/uL (4.00-5.20) HEMOGLOBIN 11.5 L gm/dL (12.0-16.0) HEMATOCRIT 33.8 L % (36.0-46.0) MEAN CELL VOLUME 81 fL (80-100) MEAN CORPUSCULAR HGB 28 pg (26-34) MEAN CORPUSCULAR HGB CONC 34 g/dL (31-37) RED CELL DISTRIBUTION WIDTH 15.1 H % (11.6-14.8) PLATELET COUNT 218 K/uL (150-400) NEUTROPHIL % 85.5 H % (50-75) LYMPH % 8.7 L % (25-40) MONO % 4.7 % (3-14) EOSINOPHIL % 0.6 % (0-4) BASOPHIL % 0.5 % (0-2) CMP: (ETHEL: 12/29/2016 18:09) ( [facility] 12/29/2016 19:14) Final results Test Result Flag Units (Reference) GLUCOSE 98 mg/dL (70-110) BUN 4 L mg/dL (7-18) CREATININE 0.4 L mg/dL (0.6-1.3) Estimated GFR >60 mL/min Estimated GFR- >60 mL/min Note: Persistent reduction over 3 months in eGFR<60 mL/min/1.73 m2 defines CKD. Patients with eGFR values>=60 mL/min/1.73 m2 may also have CKD if evidence ofpersistent proteinuria. Additional information may be foundat www.kidney.org. SODIUM 134 L mmol/L (136-145) POTASSIUM 3.7 mmol/L (3.5-5.1) CHLORIDE 103 mmol/L (98-107) CARBON DIOXIDE 23 mmol/L (21-32) CALCIUM 8.2 L mg/dL (8.5-10.1) TOTAL PROTEIN 6.3 L g/dL (6.4-8.2) ALBUMIN 2.5 L g/dL (3.3-5.0) BILIRUBIN, TOTAL 0.1 mg/dL (0.0-1.0) ALKALINE PHOSPHATASE 87 U/L (46-116) AST (SGOT) 20 U/L (15-37) ALT (SGPT) 17 U/L (12-78) . PROGRESS AND PROCEDURES Course of Care: 17:34 12/29/16. ( doppler heart tones 155bpm, regular.) atient here in the emergency department with no signs of meningealsymptoms. Afebrile. No signs of infectious process. Headache ongoing for 3 days, I do not suspect hemorrhage. No signs ofvaginal bleeding or related complaint at this time. Patient with elevated blood pressure upon arrival, improved with hydration. No signs of proteinuria or ketones. 12/29/2016 18:44 BP: 128/58. HR: 82. RR: 16. O2 saturation: 98%. Temp: 97.7 F. Pain level now: 6/10. Patient is stable. Symptoms better. Patient/family counseled. Disposition: Discharged. Condition: good. CLINICAL IMPRESSION Acute headache. Second trimester . INSTRUCTIONS (YOUR labs look great here in the emergency department. Hydrate well and please follow up with her primary care provider.). Warnings: Further evaluation is necessary. Prescription Medications: Zofran ODT 4 mg: take 1 orally every 6 hours for 3 days as needed for nausea. Dispense five (5). No refill. OTC Medications: Acetaminophen (available over the counter): take according to label instructions. Benadryl Allergy 25 mg (available over the counter): take 1 orally every 6 hours for 3 days. Dispense ten (10). No refill. (Electronically signed by Ana Mckeon P.A.-C 12/29/2016 19:25)
--- NOTE | 2016-12-29 19:12 | ED NURSING NOTES ---
Clinical Report - Nurses [facility] [address] [place] [address] 12/29/2016 17:06 Patient: SORAYA MIDDLETON TRIAGE Triage time 17:Dec 29 2016. Chief Complaint: HEADACHE and MIGRAINE HEADACHE and (pt with hx of migraines, EDC 05/29/2017, c/o headache x 3 days). Alert. No acute distress. SEPSIS SCREEN: Sepsis Screen. Negative (no infection suspected/documented). DUSTIN COMA SCORE: Dustin Coma Scale: 15- eyes open spontaneously (4); best verbal response- oriented x 4 (5); best motor response- obeys commands (6). --17:16 Walt Pillai R.N. 17:11 12/29/16. BP: 147/74. HR: 110. RR: 15. O2 saturation: 97%. Temp: 97.8 F. Pain level now: 03/23. --17:16 Walt Pillai R.N. Weight: 142.8 kg stated. Height/Length: 69 inches Per Patient. BMI: 46.5. --17:14 Walt Pillai R.N. Medications Vitamins Oral. --17:13 Walt Pillai R.N. Medication/allergy information source: the patient. --17:16 Walt Pillai R.N. Allergies No Known Drug Allergy. --17:13 Walt Pillai R.N. History Arrived by private vehicle. Historian: patient. The patient has had nausea. ( pt reports "worse pain she's ever had" rates a 03/23). No vomiting, numbness or fever. 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 PAST MEDICAL HX: Immunizations: up-to-date. Last normal menstrual period- pt does not remember , confirms with EDC of 05/29/2017. SOCIAL HX: Never smoker. No alcohol use or drug use. No recent travel. No infectious disease exposure. No known contact with a sick individual. ABUSE ASSESSMENT: No report of abuse. SELF HARM ASSESSMENT: A self harm assessment was performed. The patient answered "no" to the question "Do you have thoughts of harming or killing yourself?". FALL RISK ASSESSMENT: Fall risk assessment completed. No fall risk identified. NUTRITIONAL RISK ASSESSMENT: The nutritional risk assessment revealed no deficiencies. FUNCTIONAL ASSESSMENT: Functional assessment: no impairments noted. LEARNING NEEDS ASSESSMENT: The learning needs assessment revealed no barriers. SKIN INTEGRITY ASSESSMENT: Skin integrity risk assessment completed. No skin integrity risk identified. --17:16 Walt Pillai R.N. PROBLEMS: Vaginal Bleeding. Care. --17:13 Walt Pillai R.N. ADDITIONAL SURGERIES: Cholecystectomy. --17:13 Walt Pillai R.N. Interventions ID band on patient. To treatment room. --17:16 Walt Pillai R.N. PHYSICAL ASSESSMENT Ambulatory to room. Patient gowned. GENERAL / NEURO / PSYCH: Alert. Oriented X 4. Appears in pain. Speech within normal limits. HEENT: No facial asymmetry noted. Pupils equal, round and reactive to light. RESPIRATORY: Respirations not labored. CVS: Capillary refill less than 2 seconds. SKIN: Skin is warm and dry. --17:16 Walt Pillai R.N. NURSING PROGRESS NOTES Patient identifiers checked. Call light placed in reach. Side rails up x 1. Bed placed in lowest position. Brakes of bed on. Patient ready for evaluation- chart flagged. Patient waiting for evaluation. --17:16 Walt Pillai R.N. 17:34 12/29/16. ( doppler heart tones 155bpm, regular.). --17:34 [facility] 18:03 12/29/2016 Site #1 started via IV in the right hand with an 20g angiocath, with aseptic technique and good blood return; one attempt. Blood drawn: rainbow set. Labeled in the presence of the patient and sent to the lab. Saline lock flushed with 10 mL saline. --18:08 AliM 18:08 12/29/2016 Started bag #1 1000 mL IV Fluids IV NS (Saline); at 999 mL/hr over 1 hour(s) via site #1 via IV pump. Allergies verified and confirmed 5 rights. IV patency established. IV site checked: no pain, redness, or swelling. IV flushed thoroughly pre- and post-medication administration. --18: [facility] 18:12/29/2016 Reglan (Metoclopramide HCl) IVP 10 mg given over 2 minute(s) via site #1. Allergies verified and confirmed 5 rights. IV patency established. IV site checked: no pain, redness, or swelling. IV flushed thoroughly pre- and post-medication administration. IVP given by RN. --18: [facility] 18:12/29/2016 Benadryl (DiphenhydrAMINE HCl) IVP 25 mg given over 2 minute(s) via site #1. Allergies verified, confirmed 5 rights and sedative warning given to the patient. IV patency established. IV site checked: no pain, redness, or swelling. IV flushed thoroughly pre- and post-medication administration. IVP given by RN. --18: [facility] 18:12/29/2016 Zofran (Ondansetron HCl) IVP 4 mg given over 2 minute(s) via site #1. Allergies verified and confirmed 5 rights. IV patency established. IV site checked: no pain, redness, or swelling. IV flushed thoroughly pre- and post-medication administration. IVP given by RN. --18: [facility] 18:12/29/2016 Tylenol (Acetaminophen) PO 650 mg given. Allergies verified and confirmed 5 rights. --18: [facility] 18:24. Checked patient name and birthdate urine collected; sample sent to lab. Specimen labeled in the presence of the patient. --18:31 McQuoid, Kailyn, ER Tech1 18:44 12/29/16. BP: 128/58 taken on the left arm, while lying. HR: 82. RR: 16 (regular and unlabored). O2 saturation: 98% on room air. Temp: 97.7 F (oral). Pain level now: 11/21. --18:45 [facility] 18:35 12/29/2016 Reglan IVP Response: no adverse reaction pain is improving. Symptoms have improved the patient feels better. --18:45 [facility] 18:35 12/29/2016 Benadryl IVP Response: no adverse reaction pain is improving. Symptoms have improved the patient feels better. --18:45 AliM 18:36 12/29/2016 Zofran IVP Response: no adverse reaction pain is improving. Symptoms have improved the patient feels better. --18:46 AliM 18:36 12/29/2016 Tylenol PO Response: no adverse reaction pain is improving. Symptoms have improved the patient feels better. --18:46 AliM 18:45 12/29/16. Pulse oximeter placed on patient. Head of bed elevated 15 degrees. Warming measures: blanket applied. Call light placed in reach. Side rails up x 1. Bed placed in lowest position. Brakes of bed on. --18:45 AliM. DISPOSITION / DISCHARGE 19:29 12/29/16. BP: 135/73 taken on the left arm, while sitting. HR: 95. RR: 14 (regular and unlabored). O2 saturation: 100% on room air. Temp: 98.7 F (oral). Pain level now: 11/21. --19:32 Ali 19:23 12/29/2016 Site #1 removed upon discharge. Manual pressure and bandage applied. --19:33 Ali 19:23 12/29/2016 IV Fluids IV NS Discontinued: bag #1 completed upon discharge. Total amount infused: 1000 mL. IV patency established. IV site checked: no pain, redness, or swelling. IV flushed thoroughly. --19:33 AliM 19:32 12/29/16. Departure time: 19:Dec 29 2016. Condition at departure: improved and stable. The goals identified in the patient's plan of care were met. No learning barriers present. Discharge instructions provided and reviewed with the patient. Reviewed medication(s) side effects, precautions, dosing and course information. Prescription(s) given to the patient. Patient verbalized understanding. Written instructions provided in Chinese. ( Taught pt to rest and stay well hydrated.). The patient was discharged home and accompanied by baggagemaster. She left the Emergency Department ambulatory and via private vehicle. [employer] driving. FALL RISK ASSESSMENT: Fall risk assessment completed. No fall risk identified. DUSTIN COMA SCORE: Hawkins Coma Scale: 15- eyes open spontaneously (4); best verbal response- oriented x 4 (5); best motor response- obeys commands (6). --19:32 Hu. Locked/Released at 12/29/2016 19:33 by Hu,
--- NOTE | 2016-12-29 19:12 | ED ORDER SUMMARY ---
..... Patient: SORAYA MIDDLETON OrderSheet [facility] VisitID: [id number] [place] [address] 26y, F Registration Date/Time: 12/29/2016 ORDER SHEET Weight: 142.8 kg (stated) Allergies: No Known Drug Allergy GENERAL ORDERS: Heart Tones (17:16 12/29/2016 EKoroleva P.A.-C) (17:37 AMcKenna) CBC w Diff Urgent (17:12/29/2016 EKoroleva P.A.-C) (Ack 17:24 AMcQuoid ER Tech1) (18:07 AMcKenna) CMP Urgent (17:12/29/2016 EKoroleva P.A.-C) (Ack 17:24 AMcQuoid ER Tech1) (18:07 AMcKenna) UA-Culture if indicated Urgent (17:24 12/29/2016 EKoroleva P.A.-C) (Ack 17:30 AMcQuoid ER Tech1) (18:31 AMcQuoid ER Tech1) MEDICATION ORDERS: Tylenol PO 650 mg (NOW) (17:21 12/29/2016 EKoroleva P.A.-C) (Ack 17:36 AMcKenna) (18:09 AMcKenna) IV FLUIDS: IV NS : initial bolus 1000 mL (1000 mL/hr), then 1000 mL/hr for X1 (NOW); John (17:16 12/29/2016 EKoroleva P.A.-C) (Ack 17:36 AMcKenna) (18:08 AMcKenna) Reglan IV 10 mg (NOW) (17:20 12/29/2016 EKoroleva P.A.-C) (Ack 17:36 AMcKenna) (18:08 AMcKenna) Benadryl IV 25 mg (NOW) (17:21 12/29/2016 EKoroleva P.A.-C) (Ack 17:36 AMcKenna) (18:09 AMcKenna) Zofran IV 4 mg (NOW) (17:21 12/29/2016 EKoroleva P.A.-C) (Ack 17:36 AMcKenna) ([facility]09 [facility] ORDER SHEET NOTES: [Electronically signed by Ana Mckeon P.A.-C (19:25 12/29/2016)] [Electronically signed by Wyatt Butts (19:33 12/29/2016)] [Electronically locked/signed by Wyatt Butts (19:33 12/29/2016)]
--- NOTE | 2016-12-29 19:12 | ED ORDER SUMMARY ---
..... Patient: SORAYA MIDDLETON OrderSheet [facility] VisitID: [id number] [place] [address] 26y, F Registration Date/Time: 12/29/2016 ORDER SHEET Weight: 142.8 kg (stated) Allergies: No Known Drug Allergy GENERAL ORDERS: Heart Tones (17:16 12/29/2016 EKoroleva P.A.-C) (17:37 AMcKenna) CBC w Diff Urgent (17:12/29/2016 EKoroleva P.A.-C) (Ack 17:24 AMcQuoid ER Tech1) (18:07 AMcKenna) CMP Urgent (17:12/29/2016 EKoroleva P.A.-C) (Ack 17:24 AMcQuoid ER Tech1) (18:07 AMcKenna) UA-Culture if indicated Urgent (17:24 12/29/2016 EKoroleva P.A.-C) (Ack 17:30 AMcQuoid ER Tech1) (18:31 AMcQuoid ER Tech1) MEDICATION ORDERS: Tylenol PO 650 mg (NOW) (17:21 12/29/2016 EKoroleva P.A.-C) (Ack 17:36 AMcKenna) (18:09 AMcKenna) IV FLUIDS: IV NS : initial bolus 1000 mL (1000 mL/hr), then 1000 mL/hr for X1 (NOW); John (17:16 12/29/2016 EKoroleva P.A.-C) (Ack 17:36 AMcKenna) (18:08 AMcKenna) Reglan IV 10 mg (NOW) (17:20 12/29/2016 EKoroleva P.A.-C) (Ack 17:36 AMcKenna) (18:08 AMcKenna) Benadryl IV 25 mg (NOW) (17:21 12/29/2016 EKoroleva P.A.-C) (Ack 17:36 AMcKenna) (18:09 AMcKenna) Zofran IV 4 mg (NOW) (17:21 12/29/2016 EKoroleva P.A.-C) (Ack 17:36 AMcKenna) (18:09 [facility] ORDER SHEET NOTES: [Electronically signed by Ana Mckeon P.A.-C (19:25 12/29/2016)] [Electronically signed by Wyatt Butts (19:33 12/29/2016)] [Electronically locked/signed by Wyatt Butts (19:33 12/29/2016)]
--- NOTE | 2016-12-29 19:12 | ED CLINICAL REPORT ---
Clinical Report - Physicians/Mid Levels [facility] [address] [place] [address] 12/29/2016 17:06 Patient: SORAYA MIDDLETON Time Seen: 17:14 Dec 29 2016. Arrived- By private vehicle. Historian- patient. HISTORY OF PRESENT ILLNESS Chief Complaint: HEADACHE. 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 headache is throbbing in nature. Patient reports similar headaches with her first . Reports taking Tylenol prior to arrival, low dose with minimal effect. Denies any neck pain, fevers denies any nausea or vomiting. Denies any rhinorrhea congestion. Denies any vaginalbleeding. Denies any loss of fluid.). REVIEW OF SYSTEMS No fever, abdominal pain or skin rash. All systems otherwise negative, except as recorded above. SOCIAL HISTORY Never smoker. No alcohol use or drug use. ADDITIONAL NOTES The nursing notes have been reviewed. PHYSICAL EXAM Vital Signs: 12/29/2016 17:11 BP: 147/74. HR: 110. RR: 15. O2 saturation: 97%. Temp: 97.8 F. Pain level now: 10/10. Appearance: Alert. No apparent distress. Does not appear to be anxious. Eyes: Pupils equal, round and reactive to light. Neck: Normal inspection. Neck supple. CVS: Normal heart rate and rhythm. Heart sounds normal. Respiratory: No respiratory distress. Breath sounds normal. Abdomen: ( uterus, non tender abd). Back: Normal inspection. Skin: Skin warm. Normal skin color. Neuro: Oriented X 3. Alert. Mood/affect normal. Cranial nerves normal (as tested). No cerebellar findings. No motor deficit. LABS, X-RAYS, AND EKG Laboratory Tests: UA-Culture if indicated: (ETHEL: 12/29/2016 18:20) ( MsgRcvd 12/29/2016 18:50) Final results Test Result Flag Units (Reference) URINE COLOR YELLOW URINE APPEARANCE CLEAR URINE GLUCOSE NEGATIVE (NEGATIVE) URINE BILIRUBIN NEGATIVE (NEGATIVE) URINE KETONE NEGATIVE (NEGATIVE) URINE SPECIFIC GRAVITY 1.015 (1.010-1.030) URINE PH 6.0 (5.0-8.0) URINE PROTEIN NEGATIVE (NEGATIVE) URINE UROBILINOGEN 0.2 EU/dL (0.2-1.0) URINE NITRITE NEGATIVE (NEGATIVE) URINE BLOOD NEGATIVE (NEGATIVE) URINE LEUK ESTERASE NEGATIVE (NEGATIVE) URINE RBC 0-1 rbc/hpf (0-1) URINE WBC 1-3 wbc/hpf (0-1) URINE EPITHELIAL CELLS 1-3 EPI/hpf (0-5) URINE BACTERIA NONE SEEN (NONE SEEN) URINE COMMENT CULT NOT INDICATED URINE CULTURES ARE SET-UP BASED ON THE FOLLOWING CRITERIA:POSITIVE NITRITEPOSITIVE LEUKOCYTE ESTERASEGREATER THAN 10 WHITE BLOOD CELLSMODERATE (2+) OR GREATER BACTERIA CBC w Diff: (ETHEL: 12/29/2016 18:09) ( [facility] 12/[facility] 18:37) Final results Test Result Flag Units (Reference) WHITE BLOOD COUNT 9.7 K/uL (4.5-11.5) RED BLOOD COUNT 4.18 M/uL (4.00-5.20) HEMOGLOBIN 11.5 L gm/dL (12.0-16.0) HEMATOCRIT 33.8 L % (36.0-46.0) MEAN CELL VOLUME 81 fL (80-100) MEAN CORPUSCULAR HGB 28 pg (26-34) MEAN CORPUSCULAR HGB CONC 34 g/dL (31-37) RED CELL DISTRIBUTION WIDTH 15.1 H % (11.6-14.8) PLATELET COUNT 218 K/uL (150-400) NEUTROPHIL % 85.5 H % (50-75) LYMPH % 8.7 L % (25-40) MONO % 4.7 % (3-14) EOSINOPHIL % 0.6 % (0-4) BASOPHIL % 0.5 % (0-2) CMP: (ETHEL: 12/29/2016 18:09) ( [facility] 12/29/2016 19:14) Final results Test Result Flag Units (Reference) GLUCOSE 98 mg/dL (70-110) BUN 4 L mg/dL (7-18) CREATININE 0.4 L mg/dL (0.6-1.3) Estimated GFR >60 mL/min Estimated GFR- >60 mL/min Note: Persistent reduction over 3 months in eGFR<60 mL/min/1.73 m2 defines CKD. Patients with eGFR values>=60 mL/min/1.73 m2 may also have CKD if evidence ofpersistent proteinuria. Additional information may be foundat www.kidney.org. SODIUM 134 L mmol/L (136-145) POTASSIUM 3.7 mmol/L (3.5-5.1) CHLORIDE 103 mmol/L (98-107) CARBON DIOXIDE 23 mmol/L (21-32) CALCIUM 8.2 L mg/dL (8.5-10.1) TOTAL PROTEIN 6.3 L g/dL (6.4-8.2) ALBUMIN 2.5 L g/dL (3.3-5.0) BILIRUBIN, TOTAL 0.1 mg/dL (0.0-1.0) ALKALINE PHOSPHATASE 87 U/L (46-116) AST (SGOT) 20 U/L (15-37) ALT (SGPT) 17 U/L (12-78) . PROGRESS AND PROCEDURES Course of Care: 17:34 12/29/16. ( doppler heart tones 155bpm, regular.) atient here in the emergency department with no signs of meningealsymptoms. Afebrile. No signs of infectious process. Headache ongoing for 3 days, I do not suspect hemorrhage. No signs ofvaginal bleeding or related complaint at this time. Patient with elevated blood pressure upon arrival, improved with hydration. No signs of proteinuria or ketones. 12/29/2016 18:44 BP: 128/58. HR: 82. RR: 16. O2 saturation: 98%. Temp: 97.7 F. Pain level now: 6/10. Patient is stable. Symptoms better. Patient/family counseled. Disposition: Discharged. Condition: good. CLINICAL IMPRESSION Acute headache. Second trimester . INSTRUCTIONS (YOUR labs look great here in the emergency department. Hydrate well and please follow up with her primary care provider.). Warnings: Further evaluation is necessary. Prescription Medications: Zofran ODT 4 mg: take 1 orally every 6 hours for 3 days as needed for nausea. Dispense five (5). No refill. OTC Medications: Acetaminophen (available over the counter): take according to label instructions. Benadryl Allergy 25 mg (available over the counter): take 1 orally every 6 hours for 3 days. Dispense ten (10). No refill. (Electronically signed by Ana Mckeon P.A.-C 12/29/2016 19:25)
--- NOTE | 2016-12-29 19:33 | ED MED RECONCILIATION SUMMARY ---
Patient: SORAYA MIDDLETON Medication Reconciliation Report [facility] VisitID: [id number] [place] [address] 26y, F Registration Date/Time: 12/29/2016 Weight: 142.8 kg Height/Length: 69 in. BMI: 46.5 ALLERGIES: No Known Drug Allergy The patient's Home Medications are listed below: THE FOLLOWING MEDICATIONS NEED TO BE RECONCILED: Vitamins Oral The source(s) of the original Home Medication information: patient The following Medications were given to the patient in the Emergency Department: IV NS IV Fluids bolus 0, then 999 mL/hr, administered: 12/29/2016 6:08:00 PM Reglan [IVP] IVP 10 mg, administered: 12/29/2016 6:08:00 PM Benadryl [IVP] IVP 25 mg, administered: 12/29/2016 6:09:00 PM Zofran [IVP] IVP 4 mg, administered: 12/29/2016 6:09:00 PM Tylenol [PO] PO 650 mg, administered: 12/29/2016 6:09:00 PM The following Medications were prescribed to the patient: Acetaminophen (available over the counter): take according to label instructions. -- Ana Mckeon P.A.-Hannah Zofran ODT 4 mg: take 1 orally every 6 hours for 3 days as needed for nausea. Dispense five (5). No refill. -- Ana Mckeon P.A.-Hannah Benadryl Allergy 25 mg (available over the counter): take 1 orally every 6 hours for 3 days. Dispense ten (10). No refill. -- Ana Mckeon P.A.-C
--- NOTE | 2016-12-29 19:33 | ED MAR SUMMARY ---
..... Medication Administration Record [facility] [address] [place] [address] Patient: SORAYA MIDDLETON Visit ID: [id number] 26y, F Weight: 142.8 kg Height/Length: 69 in BMI: 46.5 ALLERGIES: No Known Drug Allergy Start 18:12/29/2016 AliM,, Stop 19:23 12/29/2016 AliM, Medication Administered: IV NS (SALINE), Dose: IV Fluids over 1 hour(s), Rate: 999 mL/hr, Dispensed: 1000 mL bag, Site: #1 right hand. Medication Ordered: IV NS : initial bolus 1000 mL (1000 mL/hr), then 1000 mL/hr for X1 (NOW); John. Given 18:12/29/2016 AliM, Medication Administered: REGLAN [IVP] (METOCLOPRAMIDE HCL), Dose: 10 mg IVP over 2 minute(s), Site: #1 right hand. Medication Ordered: Reglan IV 10 mg (NOW). Given 18:12/29/2016 AliM, Medication Administered: BENADRYL [IVP] (DIPHENHYDRAMINE HCL), Dose: 25 mg IVP over 2 minute(s), Site: #1 right hand. Medication Ordered: Benadryl IV 25 mg (NOW). Given 18:12/29/2016 AliM, Medication Administered: ZOFRAN [IVP] (ONDANSETRON HCL), Dose: 4 mg IVP over 2 minute(s), Site: #1 right hand. Medication Ordered: Zofran IV 4 mg (NOW). Given 18:12/29/2016 AliM, Medication Administered: TYLENOL [PO] (ACETAMINOPHEN), Dose: 650 mg PO. Medication Ordered: Tylenol PO 650 mg (NOW).
--- NOTE | 2016-12-29 19:33 | ED MAR SUMMARY ---
..... Medication Administration Record [facility] [address] [place] [address] Patient: SORAYA MIDDLETON Visit ID: [id number] 26y, F Weight: 142.8 kg Height/Length: 69 in BMI: 46.5 ALLERGIES: No Known Drug Allergy Start 18:12/29/2016 AliM,, Stop 19:23 12/29/2016 AliM, Medication Administered: IV NS (SALINE), Dose: IV Fluids over 1 hour(s), Rate: 999 mL/hr, Dispensed: 1000 mL bag, Site: #1 right hand. Medication Ordered: IV NS : initial bolus 1000 mL (1000 mL/hr), then 1000 mL/hr for X1 (NOW); John. Given 18:12/29/2016 AliM, Medication Administered: REGLAN [IVP] (METOCLOPRAMIDE HCL), Dose: 10 mg IVP over 2 minute(s), Site: #1 right hand. Medication Ordered: Reglan IV 10 mg (NOW). Given 18:12/29/2016 AliM, Medication Administered: BENADRYL [IVP] (DIPHENHYDRAMINE HCL), Dose: 25 mg IVP over 2 minute(s), Site: #1 right hand. Medication Ordered: Benadryl IV 25 mg (NOW). Given 18:12/29/2016 AliM, Medication Administered: ZOFRAN [IVP] (ONDANSETRON HCL), Dose: 4 mg IVP over 2 minute(s), Site: #1 right hand. Medication Ordered: Zofran IV 4 mg (NOW). Given 18:12/29/2016 AliM, Medication Administered: TYLENOL [PO] (ACETAMINOPHEN), Dose: 650 mg PO. Medication Ordered: Tylenol PO 650 mg (NOW).
--- NOTE | 2016-12-29 19:33 | ED DISCHARGE INSTRUCTIONS ---
Patient: SORAYA MIDDLETON General Instructions [facility] VisitID: [id number] [place] [address] 26y, F Registration Date/Time: 12/29/2016 Acute headache. Second trimester . INSTRUCTIONS (YOUR labs look great here in the emergency department. Hydrate well and please follow up with her primary care provider.). Warnings: Further evaluation is necessary. Prescription Medications: Zofran ODT 4 mg: take 1 orally every 6 hours for 3 days as needed for nausea. Dispense five (5). No refill. OTC Medications: Acetaminophen (available over the counter): take according to label instructions. Benadryl Allergy 25 mg (available over the counter): take 1 orally every 6 hours for 3 days. Dispense ten (10). No refill. ADDITIONAL INFORMATION Headache [Unspecified] The cause of your headache today is not clear, but it does not appear to be the sign of any serious illness. Under stress, some people tense the muscles of their shoulder, neck and scalp without knowing it. If this condition lasts long enough, a TENSION HEADACHE can occur. A MIGRAINE HEADACHE is caused by changes in blood flow to the brain. A migraine attack may be triggered by emotional stress, hormone changes during the menstrual cycle, oral contraceptives, alcohol use, certain foods containing tyramine, eye strain, weather changes, missing meals, lack of sleep or oversleeping. Other causes of headache include a viral illness with high fever, head injury with concussion, sinus, ear or throat infection, dental pain and TMJ (jaw joint) pain. More serious but less common causes of headache include stroke, brain hemorrhage, brain tumor, meningitis and encephalitis. Home Care: If you were given pain medicine for this headache, do not drive yourself home. Arrange for a ride, instead. When you get home, try to sleep. You should feel much better when you wake up. Apply heat to the back of your neck to relieve neck muscle spasm. Migraine headaches may respond best to an ice pack on the forehead or at the base of the skull. If you are having nausea or vomiting, follow a light diet until your headache is relieved. If you have a migraine type headache, use sunglasses when in the daylight or around bright indoor lighting until symptoms improve. Bright glaring light can worsen this kind of headache. Follow Up with your doctor if the headache is not better within the next 24 hours. If you have frequent headaches you should discuss a treatment plan with your primary care doctor. By being aware of the earliest signs of headache, and starting treatment right away, you may be able to stop the pain yourself. Get Prompt Medical Attention if any of the following occur: Worsening of your head pain or no improvement within 24 hours Repeated vomiting (unable to keep liquids down) Fever of 100.4F (38C) or higher, or as directed by your healthcare provider Stiff neck Extreme drowsiness, confusion or fainting Dizziness, vertigo (dizziness with spinning sensation) Weakness of an arm or leg or one side of the face Difficulty with speech or vision You have been given the following additional information: Headache, Unspecified (Electronically signed by Ana Mckeon P.A.-C 12/29/2016 19:25)
--- NOTE | 2016-12-29 19:33 | ED MED RECONCILIATION SUMMARY ---
Patient: SORAYA MIDDLETON Medication Reconciliation Report [facility] VisitID: [id number] [place] [address] 26y, F Registration Date/Time: 12/29/2016 Weight: 142.8 kg Height/Length: 69 in. BMI: 46.5 ALLERGIES: No Known Drug Allergy The patient's Home Medications are listed below: THE FOLLOWING MEDICATIONS NEED TO BE RECONCILED: Vitamins Oral The source(s) of the original Home Medication information: patient The following Medications were given to the patient in the Emergency Department: IV NS IV Fluids bolus 0, then 999 mL/hr, administered: 12/29/2016 6:08:00 PM Reglan [IVP] IVP 10 mg, administered: 12/29/2016 6:08:00 PM Benadryl [IVP] IVP 25 mg, administered: 12/29/2016 6:09:00 PM Zofran [IVP] IVP 4 mg, administered: 12/29/2016 6:09:00 PM Tylenol [PO] PO 650 mg, administered: 12/29/2016 6:09:00 PM The following Medications were prescribed to the patient: Acetaminophen (available over the counter): take according to label instructions. -- Ana Mckeon P.A.-Hannah Zofran ODT 4 mg: take 1 orally every 6 hours for 3 days as needed for nausea. Dispense five (5). No refill. -- Ana Mckeon P.A.-Hannah Benadryl Allergy 25 mg (available over the counter): take 1 orally every 6 hours for 3 days. Dispense ten (10). No refill. -- Ana Mckeon P.A.-C
== END 2016-12-29 19:23 | disposition home or self-care (01) ==
LOC: ED SRH 17:06
DX: O99.89 Other specified diseases and conditions complicating pregnancy, childbirth and the puerperium (principal); R51 Headache; Z3A.19 19 weeks gestation of pregnancy
CPT/HCPCS: 90004; 90100; 95059

== ENCOUNTER 2016-12-30 20:01 | Emergency (ER) | payer OTHER ==
--- NOTE | 2016-12-30 21:17 | ED NURSING NOTES ---
Clinical Report - Nurses [facility] [address] [place] [address] 12/30/2016 20:01 Patient: SORAYA MIDDLETON TRIAGE Triage time 20:08. Acuity: LEVEL 4. Chief Complaint: FEVER ((101 at home)). --20:14 Terra Castro R.N. 20:08 12/30/16. BP: 133/73. HR: 125. RR: 18. O2 saturation: 98% on room air. Temp: 99.6 F. Pain level now: 03/23. Patient is smiling. --20:14 Terra Castro R.N. Weight: 142.8 kg stated. Height/Length: 69 inches Per Patient. BMI: 46.5. --20:12 Terra Castro R.N. Medications Vitamins Oral. --20:12 Terra Castro R.N. Allergies No Known Drug Allergy. --20:12 Terra Castro R.N. History Arrived by private vehicle. Historian: patient. This started today. She has had a headache (began 4 days ago, accompanied by "stiff neck", was seen here last night.). 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 (500mg (last dose about 1hr LIQUOR STORE MANAGER)). PAST MEDICAL HX: Immunizations: up-to-date. Currently : 18weeks 4 days (EDC:05-29-17). Has had care by ug designer. SOCIAL HX: Never smoker. No alcohol use or drug use. NUTRITIONAL RISK ASSESSMENT: The nutritional risk assessment revealed no deficiencies. FUNCTIONAL ASSESSMENT: Functional assessment: no impairments noted. --20:14 Terra Castro R.N. PROBLEMS: Headache. --20:12 Terra Castro R.N. ADDITIONAL SURGERIES: Cholecystectomy. --20:12 Terra Castro R.N. Interventions ID band on patient. To treatment room. --20:14 Terra Castro R.N. PHYSICAL ASSESSMENT Ambulatory to room. GENERAL / NEURO / PSYCH: Alert. Oriented X 4. Appears in no acute distress. RESPIRATORY: Respirations not labored. CVS: Capillary refill less than 2 seconds. SKIN: Skin is warm and dry. --20:14 Terra Castro R.N. NURSING PROGRESS NOTES Head of bed elevated. Two patient identifiers checked. Call light placed in reach. Side rails up x 1. Bed placed in lowest position. Brakes of bed on. --20:14 Terra Castro R.N. Patient ready for evaluation- chart flagged. --20:14 Terra Castro R.N. DISPOSITION / DISCHARGE Condition at departure: stable. No learning barriers present. Discharge instructions provided and reviewed with the patient. Reviewed medication(s) side effects, precautions, dosing and course information. Prescription(s) given to the patient. Patient verbalized understanding. Written instructions provided in Venezuelan. The patient was discharged home and accompanied by blast furnace operator. She left the Emergency Department ambulatory and via private vehicle. Igniter Assembler driving. --23:12 Terra Castro R.N. 21:25 12/30/16. BP: 113/63. HR: 119. RR: 15. O2 saturation: 99% on room air. Temp: 99.1 F (oral). Cho-Aleman pain scale: 4/10. --23:12 Terra Castro R.N. Departure time: 2127. --23:12 Terra Castro R.N. Locked/Released at 12/30/2016 23:13 by Terra Castro R.N.
--- NOTE | 2016-12-30 21:17 | ED CLINICAL REPORT ---
Clinical Report - Physicians/Mid Levels [facility] [address] [place] [address] 12/30/2016 20:01 Patient: SORAYA MIDDLETON Time Seen: 20:25; initial patient contact. Arrived- By private vehicle. Historian- patient. HISTORY OF PRESENT ILLNESS Chief Complaint: FEVER. Temperature treated prior to arrival with tylenol. This started about 4 days ago, is still present and is now gone. Fever was gradual in onset. The patient has had mild muscle aches involving the neck. No loss of appetite, fatigue, chest pain, dyspnea or cough. No decreased oral intake, altered mental status or skin rash. No decreased urine output. Additional history - No known contact with a sick individual. Has not recently been ill. She is not immunocompromised. No drug use. No alcohol recently. Similar symptoms previously: None. Recent medical care: The patient was seen recently at this facility in the emergency department (last night. Blood and urine all nl.). REVIEW OF SYSTEMS No nausea, vomiting, sinus pain, sore throat or double vision. No photophobia, nausea or vomiting. She has had a headache and neck pain. All systems otherwise negative, except as recorded above. PAST HISTORY Headache. SURGERIES: Cholecystectomy. SOCIAL HISTORY Never smoker. No alcohol use or drug use. ADDITIONAL NOTES The nursing notes have been reviewed. PHYSICAL EXAM Vital Signs: 12/30/2016 20:08 BP: 133/73. HR: 125. RR: 18. O2 saturation: 98%. Temp: 99.6 F. Pain level now: 03/23. Have been reviewed. Blood pressure normal. Tachycardic. Respiratory rate normal. Temperature normal. Oxygen saturation normal. Appearance: Alert. No acute distress. Eyes: Pupils equal, round and reactive to light. Eyes normal inspection. ENT: Pharynx normal. Neck: Moderate muscle spasm of the right and left posterior neck. Neck supple. Mild soft tissue tenderness in the right upper neck area and left upper neck area. No neck stiffness, nuchal rigidity or decreased ROM in the neck. Negative Brudzinski's sign and Kernig's sign. No pain with movement of head/neck. No vertebral tenderness. No vertebral step-off. CVS: Normal heart rate and rhythm. Heart sounds normal. Respiratory: No respiratory distress. Breath sounds normal. Abdomen: Soft and nontender. Bowel sounds normal. Skin: Skin warm and dry. Normal skin color. No rash. Neuro: Oriented X 3. No motor deficit. No sensory deficit. PROGRESS AND PROCEDURES Disposition: Discharged home in good and improved condition. Condition: good. CLINICAL IMPRESSION Episodic tension-type headache resistant to treatment. INSTRUCTIONS Your Current Medications: CONTINUE TAKING THE FOLLOWING MEDICATIONS: Vitamins Oral. Prescription Medications: Tramadol 50 mg: take 1 orally every 6 hours as needed for pain and stiffness. Do not take more than 8 tablets in a 24 hour period. Dispense twenty (20). No refills. Follow-up: Follow up with your doctor in about two days. Call for an appointment. Screening today revealed the patient's blood pressure to be in the pre-hypertensive range. The patient should follow up with a primary care provider for blood pressure management. (Electronically signed by Irvin Morataya Dr. 12/30/2016 21:43)
--- NOTE | 2016-12-30 21:17 | ED NURSING NOTES ---
Clinical Report - Nurses [facility] [address] [place] [address] 12/30/2016 20:01 Patient: SORAYA MIDDLETON TRIAGE Triage time 20:08. Acuity: LEVEL 4. Chief Complaint: FEVER ((101 at home)). --20:14 Terra Castro R.N. 20:08 12/30/16. BP: 133/73. HR: 125. RR: 18. O2 saturation: 98% on room air. Temp: 99.6 F. Pain level now: 03/23. Patient is smiling. --20:14 Terra Castro R.N. Weight: 142.8 kg stated. Height/Length: 69 inches Per Patient. BMI: 46.5. --20:12 Terra Castro R.N. Medications Vitamins Oral. --20:12 Terra Castro R.N. Allergies No Known Drug Allergy. --20:12 Terra Castro R.N. History Arrived by private vehicle. Historian: patient. This started today. She has had a headache (began 4 days ago, accompanied by "stiff neck", was seen here last night.). 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 (500mg (last dose about 1hr KLYSTROM TUBE TESTER)). PAST MEDICAL HX: Immunizations: up-to-date. Currently : 18weeks 4 days (EDC:05-29-17). Has had care by quality internship. SOCIAL HX: Never smoker. No alcohol use or drug use. NUTRITIONAL RISK ASSESSMENT: The nutritional risk assessment revealed no deficiencies. FUNCTIONAL ASSESSMENT: Functional assessment: no impairments noted. --20:14 Terra Castro R.N. PROBLEMS: Headache. --20:12 Terra Castro R.N. ADDITIONAL SURGERIES: Cholecystectomy. --20:12 Terra Castro R.N. Interventions ID band on patient. To treatment room. --20:14 Terra Castro R.N. PHYSICAL ASSESSMENT Ambulatory to room. GENERAL / NEURO / PSYCH: Alert. Oriented X 4. Appears in no acute distress. RESPIRATORY: Respirations not labored. CVS: Capillary refill less than 2 seconds. SKIN: Skin is warm and dry. --20:14 Terra Castro R.N. NURSING PROGRESS NOTES Head of bed elevated. Two patient identifiers checked. Call light placed in reach. Side rails up x 1. Bed placed in lowest position. Brakes of bed on. --20:14 Terra Castro R.N. Patient ready for evaluation- chart flagged. --20:14 Terra Castro R.N. DISPOSITION / DISCHARGE Condition at departure: stable. No learning barriers present. Discharge instructions provided and reviewed with the patient. Reviewed medication(s) side effects, precautions, dosing and course information. Prescription(s) given to the patient. Patient verbalized understanding. Written instructions provided in Angolan. The patient was discharged home and accompanied by frontend engineer. She left the Emergency Department ambulatory and via private vehicle. Rubber Molder driving. --23:12 Terra Castro R.N. 21:25 12/30/16. BP: 113/63. HR: 119. RR: 15. O2 saturation: 99% on room air. Temp: 99.1 F (oral). Cho-Aleman pain scale: 4/10. --23:12 Terra Castro R.N. Departure time: 2127. --23:12 Terra Castro R.N. Locked/Released at 12/30/2016 23:13 by Terra Castro R.N.
--- NOTE | 2016-12-30 23:13 | ED MAR SUMMARY ---
..... Medication Administration Record [facility] [address] [place], [place] [id number] Patient: SORAYA MIDDLETON Visit ID: [id number] 26y, F Weight: 142.8 kg Height/Length: 69 in BMI: 46.5 ALLERGIES: No Known Drug Allergy
--- NOTE | 2016-12-30 23:13 | ED MED RECONCILIATION SUMMARY ---
Patient: SORAYA MIDDLETON Medication Reconciliation Report [facility] VisitID: [id number] [address] [place] [address] 26y, F Registration Date/Time: 12/30/2016 Weight: 142.8 kg Height/Length: 69 in. BMI: 46.5 ALLERGIES: No Known Drug Allergy The patient's Home Medications are listed below: CONTINUE TAKING THE FOLLOWING MEDICATIONS: Vitamins Oral The source(s) of the original Home Medication information: Not obtained. The following Medications were given to the patient in the Emergency Department: None. The following Medications were prescribed to the patient: Tramadol 50 mg: take 1 orally every 6 hours as needed for pain and stiffness. Do not take more than 8 tablets in a 24 hour period. Dispense twenty (20). No refills. -- Irvin Morataya Dr.
--- NOTE | 2016-12-30 23:13 | ED MAR SUMMARY ---
..... Medication Administration Record [facility] [address] [place], [place] [id number] Patient: SORAYA MIDDLETON Visit ID: [id number] 26y, F Weight: 142.8 kg Height/Length: 69 in BMI: 46.5 ALLERGIES: No Known Drug Allergy
--- NOTE | 2016-12-30 23:13 | ED MED RECONCILIATION SUMMARY ---
Patient: SORAYA MIDDLETON Medication Reconciliation Report [facility] VisitID: [id number] [address] [place] [address] 26y, F Registration Date/Time: 12/30/2016 Weight: 142.8 kg Height/Length: 69 in. BMI: 46.5 ALLERGIES: No Known Drug Allergy The patient's Home Medications are listed below: CONTINUE TAKING THE FOLLOWING MEDICATIONS: Vitamins Oral The source(s) of the original Home Medication information: Not obtained. The following Medications were given to the patient in the Emergency Department: None. The following Medications were prescribed to the patient: Tramadol 50 mg: take 1 orally every 6 hours as needed for pain and stiffness. Do not take more than 8 tablets in a 24 hour period. Dispense twenty (20). No refills. -- Irvin Morataya Dr.
--- NOTE | 2016-12-30 23:13 | ED DISCHARGE INSTRUCTIONS ---
Patient: SORAYA MIDDLETON General Instructions [facility] VisitID: [id number] [place] [address] 26y, F Registration Date/Time: 12/30/2016 Episodic tension-type headache resistant to treatment. INSTRUCTIONS Your Current Medications: CONTINUE TAKING THE FOLLOWING MEDICATIONS: Vitamins Oral. Prescription Medications: Tramadol 50 mg: take 1 orally every 6 hours as needed for pain and stiffness. Do not take more than 8 tablets in a 24 hour period. Dispense twenty (20). No refills. Follow-up: Follow up with your doctor in about two days. Call for an appointment. Screening today revealed the patient's blood pressure to be in the pre-hypertensive range. The patient should follow up with a primary care provider for blood pressure management. ADDITIONAL INFORMATION Tension Headache Muscle Tension Headache (also called "stress headache") is a very common cause of head pain. Under stress, some people tense the muscles of their shoulder, neck and scalp without knowing it. If this lasts long enough, a headache can occur. These headaches can be very painful and last for hours or even days. Home Care: If you were given pain medicine for this headache, do not drive yourself home. Arrange for a ride, instead. When you get home, try to sleep. You should feel much better when you wake up. Heat to the back of your neck may relieve neck spasm. Drink only clear liquids or eat a very light diet to avoid nausea/vomiting until symptoms improve. Preventing Future Headaches Identify the sources of stress in your life. These may not be obvious! Learn new ways to handle your stress, such as regular exercise, biofeedback, self-hypnosis and meditation. For more information about this, consult your doctor or go to a local bookstore and review the many books and tapes on this subject. At the first sign of a tension headache, take time out if possible. Remove yourself from the stressful situation, find a quiet comfortable place to sit or lie down and let yourself relax. Heat and deep massage of the tight areas in the neck and shoulders may help reduce muscle spasm. Medicine, such as ibuprofen (Advil or Motrin) or a prescribed muscle relaxant may be helpful at this point. Follow Up with your doctor if the headache is not better within the next 24 hours. If you have frequent headaches you should discuss a treatment plan with your primary care doctor. Ask if you can have medicine to take at home the next time you get a bad headache. This may avoid the need for a visit to the emergency department in the future. Poorly controlled chronic headaches may require a referral to a neurologist (headache specialist). Get Prompt Medical Attention if any of the following occur: Worsening of your head pain or no improvement within 24 hours Repeated vomiting (unable to keep liquids down) Fever of 100.4F (38C) or higher, or as directed by your healthcare provider Stiff neck Extreme drowsiness, confusion or fainting Dizziness, vertigo (dizziness with spinning sensation) Weakness of an arm or leg or one side of the face Difficulty with speech or vision Tramadol Hydrochloride Oral tablet What is this medicine? TRAMADOL (TRA ma dole) is a pain reliever. It is used to treat moderate to severe pain in adults. How should I use this medicine? Take this medicine by mouth with a full glass of water. Follow the directions on the prescription label. If the medicine upsets your stomach, take it with food or milk. Do not take more medicine than you are told to take. Talk to your arranging funeral director regarding the use of this medicine in children. Special care may be needed. What side effects may I notice from receiving this medicine? Side effects that you should report to your doctor or health home health care worker as soon as possible: allergic reactions like skin rash, itching or hives, swelling of the face, lips, or tongue breathing difficulties, wheezing confusion itching light headedness or fainting spells redness, blistering, peeling or loosening of the skin, including inside the mouth seizures Side effects that usually do not require medical attention (report to your doctor or health home health care worker if they continue or are bothersome): constipation dizziness drowsiness headache nausea, vomiting What may interact with this medicine? Do not take this medicine with any of the following medications: MAOIs like Carbex, Eldepryl, Marplan, Nardil, and Parnate This medicine may also interact with the following medications: alcohol or medicines that contain alcohol antihistamines benzodiazepines bupropion carbamazepine or oxcarbazepine clozapine cyclobenzaprine digoxin furazolidone linezolid medicines for depression, anxiety, or psychotic disturbances medicines for migraine headache like almotriptan, eletriptan, frovatriptan, naratriptan, rizatriptan, sumatriptan, zolmitriptan medicines for pain like pentazocine, buprenorphine, butorphanol, meperidine, nalbuphine, and propoxyphene medicines for sleep muscle relaxants naltrexone phenobarbital phenothiazines like perphenazine, thioridazine, chlorpromazine, mesoridazine, fluphenazine, prochlorperazine, promazine, and trifluoperazine procarbazine warfarin What if I miss a dose? If you miss a dose, take it as soon as you can. If it is almost time for your next dose, take only that dose. Do not take double or extra doses. Where should I keep my medicine? Keep out of the reach of children. Store at room temperature between 15 and 30 degrees C (59 and 86 degrees F). Keep container tightly closed. Throw away any unused medicine after the expiration date. What should I tell my health care provider before I take this medicine? They need to know if you have any of these conditions: brain tumor depression drug abuse or addiction head injury if you frequently drink alcohol containing drinks kidney disease or trouble passing urine liver disease lung disease, asthma, or breathing problems seizures or epilepsy suicidal thoughts, plans, or attempt; a previous suicide attempt by you or a family member an unusual or allergic reaction to tramadol, codeine, other medicines, foods, dyes, or preservatives or trying to get breast-feeding What should I watch for while using this medicine? Tell your doctor or health home health care worker if your pain does not go away, if it gets worse, or if you have new or a different type of pain. You may develop tolerance to the medicine. Tolerance means that you will need a higher dose of the medicine for pain relief. Tolerance is normal and is expected if you take this medicine for a long time. Do not suddenly stop taking your medicine because you may develop a severe reaction. Your body becomes used to the medicine. This does NOT mean you are addicted. Addiction is a behavior related to getting and using a drug for a non-medical reason. If you have pain, you have a medical reason to take pain medicine. Your doctor will tell you how much medicine to take. If your doctor wants you to stop the medicine, the dose will be slowly lowered over time to avoid any side effects. You may get drowsy or dizzy. Do not drive, use machinery, or do anything that needs mental alertness until you know how this medicine affects you. Do not stand or sit up quickly, especially if you are an older patient. This reduces the risk of dizzy or fainting spells. Alcohol can increase or decrease the effects of this medicine. Avoid alcoholic drinks. You may have constipation. Try to have a bowel movement at least every 2 to 3 days. If you do not have a bowel movement for 3 days, call your doctor or health home health care worker. Your mouth may get dry. Chewing sugarless gum or sucking hard candy, and drinking plenty of water may help. Contact your doctor if the problem does not go away or is severe. You have been given the following additional information: Headache, Tension Tramadol Hydrochloride Oral tablet (Electronically signed by Irvin Morataya Dr. 12/30/2016 21:43)
== END 2016-12-30 21:25 | disposition home or self-care (01) ==
LOC: ED SRH 20:01
DX: O99.352 Diseases of the nervous system complicating pregnancy, second trimester (principal); G44.211 Episodic tension-type headache, intractable; Z3A.18 18 weeks gestation of pregnancy